=== PATIENT | male | born 1980 | race Caucasian/White ===

== ENCOUNTER → 2020-12-24 08:27 | Outpatient (BNVA) | payer OTHER, SELFPAY | PROVIDERS: PCP Internal Medicine; Visit Provider Orthopaedic Surgery | DX: M67.911 Unspecified disorder of synovium and tendon, right shoulder (principal); M75.21 Bicipital tendinitis, right shoulder | CPT/HCPCS: 20550; 20610; J1100 ==

== ENCOUNTER → 2021-04-04 09:35 | Outpatient (BNVA) | payer OTHER, SELFPAY | PROVIDERS: PCP Internal Medicine; Visit Provider Orthopaedic Surgery ==

== ENCOUNTER 2021-04-18 14:53 | Outpatient (REF) | payer OTHER, SELFPAY ==
--- NOTE | ~2021-04-18 | MR_ITS ---
EXAMINATION: MR SHOULDER WITHOUT CONTRAST, RIGHT CLINICAL INFORMATION: Right shoulder pain following an injury one year ago. Bicipital tendinitis. COMPARISON: None TECHNIQUE: MRI of the shoulder without contrast was performed on a high-field scanner. FINDINGS: ROTATOR CUFF: Mild supraspinatus and moderate infraspinatus tendinosis without a measurable tendon defect. No muscle atrophy or fatty infiltration. BICEPS: Unremarkable. CORACOACROMIAL ARCH: The undersurface of the acromion is minimally curved with no subacromial spur. Dpyr-nc-slbrwykm acromioclavicular osteoarthritis. LABRUM/CAPSULE: There is a lobulated cyst measuring up to 1.8 cm adjacent to the posterosuperior labrum, consistent with an occult undersurface labral tear. There is fluid extending through the undersurface of the anteroinferior, inferior, and posteroinferior labrum, consistent with a nondisplaced undersurface tear. Intact joint capsule. GLENOHUMERAL JOINT/MARROW: Mild inferior glenoid articular cartilage signal heterogeneity with tiny marginal osteophytes and minimal subchondral cystic change. No acute osseous abnormality. MR/MR shoulder RT wo con IMPRESSION: 1. Paralabral cyst adjacent to the posterosuperior labrum consistent with an occult labral tear. Non displaced undersurface tearing through the anteroinferior, inferior, and posteroinferior labrum. 2. Mild inferior glenohumeral arthrosis. 3. Moderate infraspinatus and mild supraspinatus tendinosis without a measurable tendon defect. 4. Rpfn-ei-hyrnczwe acromioclavicular osteoarthritis.
== END 2021-04-18 14:54 | disposition home or self-care (01) ==
LOC: HO.MRI 14:53
PROVIDERS: Visit Provider Orthopaedic Surgery
DX: M75.21 Bicipital tendinitis, right shoulder (principal); M67.911 Unspecified disorder of synovium and tendon, right shoulder
CPT/HCPCS: 73221

== ENCOUNTER → 2021-05-16 11:19 | Outpatient (BNVA) | payer OTHER, SELFPAY | PROVIDERS: PCP Internal Medicine; Visit Provider Orthopaedic Surgery ==

== ENCOUNTER 2023-04-13 09:39 | Outpatient (REF) | payer OTHER, SELFPAY ==
--- NOTE | ~2023-04-13 | XR_ITS ---
EXAMINATION: XR knee standing BI, XR knee LT 2V CLINICAL INFORMATION: Reason for Exam M25.569 - Pain in unspecified knee COMPARISON: None. TECHNIQUE: AP and lateral views of the left knee and standing views of the bilateral knees FINDINGS No acute fracture or dislocation. Joint spaces are maintained without significant degenerative change. No soft tissue abnormality. XR/XR knee standing BI Impression: No acute fracture or dislocation.
--- NOTE | ~2023-04-13 | XR_ITS ---
EXAMINATION: XR knee standing BI, XR knee LT 2V CLINICAL INFORMATION: Reason for Exam M25.569 - Pain in unspecified knee COMPARISON: None. TECHNIQUE: AP and lateral views of the left knee and standing views of the bilateral knees FINDINGS No acute fracture or dislocation. Joint spaces are maintained without significant degenerative change. No soft tissue abnormality. XR/XR knee LT 2V Impression: No acute fracture or dislocation.
== END 2023-04-13 09:40 | disposition home or self-care (01) ==
LOC: HO.HOSX 09:39
PROVIDERS: Visit Provider Orthopaedic Surgery
DX: M25.462 Effusion, left knee (principal); S80.12XA Contusion of left lower leg, initial encounter
CPT/HCPCS: 73560; 73565

== ENCOUNTER 2023-04-13 11:38 | Outpatient (AMB) | payer OTHER, SELFPAY ==
--- NOTE | 2023-04-13 11:51 | MHC.OFFVIS ---
Intake Vital Signs 04/13/23 11:52 Height 5 ft 11 in Weight 205 lb BMI 28.6 Intake Visit Reasons: NewProb- atraumatic left knee pain Intake Note: Galo is a 42 year old male who presents today for a new problem visit with complaints of left knee pain. Patient reports that while playing hockey about 3 weeks ago he was hit in the medial aspect of the ankle with a puck. The next morning when waking up he felt significant pain of the left knee, but limited pain in the ankle. This is described as a constant pain with no aggravating or relieving factors. He is unsure if he twisted the knee when he got hit with the puck Allergies bactrim Allergy (Unknown, Uncoded 05/16/21 11:26) Unknown HPI NewProb- atraumatic left knee pain HPI Details Galo is a 42 year old man who presents with complaints of left knee pain He complains of constant left knee pain, which he says is not worsened or improved with different activities. He was playing Hockey ~3 weeks ago when he was hit in the medial aspect of his left ankle. He is unsure if he twisted his knee then. He says he woke the next morning with significant pain in his knee, with some pain in his ankle. He now has pain and swelling along distal medial aspect of lower leg and into the ankle. He has swelling of the left knee and pain along the medial and anterosuperior aspect. [facility] Social History Alcohol intake: never Patient Tobacco Use Status: Never used Tobacco Current occupational status: employed Current occupation: landscape Review of Systems Const All systems reviewed & are unremarkable except as noted in HPI and below Physical Exam Vital Signs: BMI result Body Mass Index 28.6 Const General: no acute distress, alert and awake Orientation/consciousness: patient oriented x3 HEENT Head: Yes normocephalic and Yes atraumatic Eyes EOM: EOMs intact bilaterally Resp Effort & Inspection: normal respiratory effort and able to speak in complete sentences Cardio Jugular venous distension: no JVD Skin General skin exam: turgor normal Rashes: no rashes Neuro General: patient oriented x3 Extrem Other: Contusion with fibrotic swelling along distal medial border of left leg +retrocalcaneal squeeze test Left knee with 1+ effussion TTP medial joint line with + medial steinmen's Psych Appearance: grossly normal Affect: normal affect Attitude: cooperative Results Reviewed Results Reviewed: I personally reviewed relevant radiographs. Nl left knee radiographs Assessment & Plan Assessment & Plan (1) Effusion, left knee: Code(s): M25.462 - Effusion, left knee Plan: Effusion left knee and + medial Steinmen's with nl radiographs. MRI ordered (2) Contusion of left lower limb: Code(s): S80.12XA - Contusion of left lower leg, initial encounter Plan: Contusion with dorothy nand swelling. PT for edema/inflammation control/modalities Plan Scribed for Roderick Coto MD by Fabricio Prado, biomedical specialist, on 04/13/23 at 12:01 PM, EST. Orders: Orders XR knee standing BI Today M25.569 - Pain in unspecified knee XR knee LT 2V Today M25.569 - Pain in unspecified knee PT Evaluation and Treatment Today S80.12XA - Contusion of left lower leg, initial encounter MR knee LT wo con Today M25.462 - Effusion, left knee Coding Level of Care Code Est Pt Level 4 (80700) Diagnoses Effusion, left knee M25.462 Contusion of left lower limb S80.12XA
[2023-04-13 11:52] VITALS: BMI 28.6
== END 2023-04-13 12:31 | disposition home or self-care (01) ==
PROVIDERS: PCP Internal Medicine; Visit Provider Orthopaedic Surgery
DX: M25.462 Effusion, left knee (principal); S80.12XA Contusion of left lower leg, initial encounter
CPT/HCPCS: 99213